=== PATIENT | female | born 1975 | race Caucasian/White ===

== ENCOUNTER 2016-08-11 10:31 | Emergency (ER) | payer OTHER ==
[~2016-08-11] VITALS: Ht 160 cm; Wt 128.0 kg
[~2016-08-11 10:31] MED LIST: OMEP40CA36 PO
[2016-08-11 10:39] VITALS: BP 135/91; PULSE 105; RESP 12; O2SAT 94
--- NOTE | 2016-08-11 10:53 | ED.REPORT ---
HPI-Abd Pain F Under 42 Date of Service August 11, 2016 ED Provider: Kosta Felix MD The patient is a 41 year old female who presents to the ED due to lower abdominal pain onset yesterday. She describes the pain as, "similar to cramping during childbirth." She had diarrhea that began yesterday and nausea this morning. She denies dysuria, vaginal bleeding and discharge, back pain and SOB. Nursing Notes Stated Complaint: SEVERE ABDOMINAL PAIN,DIARRHEA Chief Complaint: Female Abdominal Pain Nursing Notes Reviewed: Yes Allergies: Coded Allergies: codeine (Verified Allergy, Severe, RASH, 07/08/15) morphine (Verified Allergy, Severe, RASH, 07/08/15) Scheduled Omeprazole (Omeprazole) 40 Mg Capsule.dr 40 MG PO DAILY Scheduled PRN Hydrocodone-Acetaminophen 5-325 mg (Hydrocodone-Acetaminophen 5-325 mg) 1 Each Tablet 1 TABLET PO Q4H PRN PRN For Pain General Time Seen by MD: 10:39 Chief Complaint Abdominal pain Hx Obtained From: Patient Arrived By: Walk-in Sudden in Onset?: Yes Onset Occurred: Yesterday Symptom Duration: Since onset Progression since Onset: Gradually worsening Location: : Abdomen lower Quality: Cramping, Painful Severity: Current: Moderate Recent Healthcare: No recent doctor visit, No recent hospitalization Similar Sx Previous: No Past Medical History Past Medical History Pleurisy Acid reflux Past Surgical History Reports: Cholecystectomy, Hysterectomy Family History Pt reports family history of heart disease and that she had one grandpa at age 63 and another grandpa in his 50s. Reports: Coronary artery disease Smoking History Current Every Day Smoker Social History Alcohol Use: Denies alcohol use Other Social History: , Local resident Ambulatory Status Independent Review of Systems Respiratory: Denies: Shortness of breath GI: Reports: Abdominal pain, Diarrhea, Nausea, Denies: Vomiting Female: Denies: Dysuria, Vaginal bleeding - abnl, Vaginal discharge Musculoskeletal: Denies: Back pain Complete sys rev & neg: except as marked. Physical Exam Initial Vital Signs Vital Signs (First) Date Time Temp Pulse Resp B/P Pulse Ox O2 Delivery O2 Flow Rate FiO2 08/11/16 10:39 36.5 105 12 135/91 94 Room Air Initial VS: Reviewed Head / Eyes: Atraumatic, Normocephalic ENT: Mucous membranes moist, Conjunctiva normal Extremities: Vascular intact, Neuro intact, No swelling Skin: Warm, Dry General/Constitutional: Awake, Alert, Cooperative Respiratory / Chest: Atraumatic, Breath sounds NL, Breath sounds = bilat Cardiovascular: Heart rate NL, Regular rhythm, Heart sounds NL, No murmurs Abdomen: No guarding, No rebound Tenderness/Guarding/Rebound: Positive: Tender diffuse Back: Atraumatic, Inspection NL Interpretation & Diagnostics Lab Results Interpretation Result Diagram: 08/11/16 1115 08/11/16 1115 Test 08/11/16 11:15 White Blood Count 8.6th/mm3 (3.8-10.1) Red Blood Count 5.01mil/mm3 (3.90-5.20) Hemoglobin 15.5g/dL (12.0-15.6) Hematocrit 43.4% (35.0-46.0) Mean Corpuscular Volume 86.6fL (81-100) Mean Corpuscular Hemoglobin 30.9pg (27.0-35.0) Mean Corpuscular Hemoglobin Concent 35.7% (32.0-37.0) Red Cell Distribution Width 12.3% (12.3-15.4) Platelet Count 267bil/L (150-400) Neutrophils (%) (Auto) 65.1% (40-74) Lymphocytes (%) (Auto) 25.8% (14-46) Monocytes (%) (Auto) 6.2% (4-12) Eosinophils (%) (Auto) 2.5% (0-5) Basophils (%) (Auto) 0.2% (0-3) Sodium Level 135mEq/L (134-144) Potassium Level 4.4mEq/L (3.5-5.2) Chloride Level 99mEq/L (97-108) Carbon Dioxide Level 19mmol/L (18-29) Blood Urea Nitrogen 17mg/dL (6-20) Creatinine 0.63mg/dL (0.57-1.00) Estimat Glomerular Filtration Rate 151mL/min (>59) Glucose Level 128mg/dL (60-99) Calcium Level 9.0mg/dL (8.5-10.1) Magnesium Level 1.8mg/dL (1.6-2.6) Total Bilirubin 0.5mg/dL (0.0-1.2) Aspartate Amino Transf (AST/SGOT) 34U/L (0-50) Alanine Aminotransferase (ALT/SGPT) 38U/L (0-32) Alkaline Phosphatase 105U/L (25-150) Total Protein 7.3g/dL (6.4-8.4) Albumin 4.0g/dL (3.4-5.0) Lipase 21U/L (13-60) Hold Gray Top Tube Received (Received) Re-Eval/Medical Decision Med Decision/Clinical Course Med Decision/Clinical Course: 41-year-old female with crampy abdominal pain and nausea vomiting diarrhea 1 day. Her abdomen is soft and nontender on exam. Her labs are stable. She was given IV fluids and Zofran and felt much better. Discharged home in good condition with return precautions regarding in the right lower quadrant pain, no worsening abdominal pain, nausea vomiting, fevers chills, any other new or worsening symptoms. Re-Evaluation/Progress : Time of Eval: 12:45 Re-Evaluation/Progress Note: Pt rechecked. Labs are normal. She is still in pain. Counseled Regarding: Diagnosis, Lab results, Need for follow-up, When/why to return to ED Discharge & Departure Primary Impression: Gastroenteritis Additional Impressions: Diarrhea Diarrhea type: unspecified type Qualified Code: R19.7 - Diarrhea, unspecified Abdominal pain Abdominal location: unspecified location Qualified Code: R10.9 - Unspecified abdominal pain Disposition: Home Discharge Condition All VS Reviewed: Yes Condition: Stable Additional Instructions: Your labs were all normal. Your symptoms are likely due to a viral gastroenteritis. Drink plenty of fluids and keep well hydrated. Follow up with your primary care physician as needed. Return to the Emergency Department for any new or worsening symptoms including bloody or black tarry stools, vomiting, shortness of breath, abdominal pain, right lower abdominal pain, other new or worsening symptoms. Referrals: Abram Hassan MD (PCP) Breana Attestation Portion of this note were transcribed by Cristin Frost. I, Dr. Felix, personally performed the history, physical exam, and medical decision-making: I reviewed and confirmed the accuracy for the information in the transcribed note. Signed by: breana Duffy, 08/11/16 1300 copies to: Abram Hassan MD, Ben M MD August 11, 2016 10:53 Cristin Frost August 11, 2016 11:03
[2016-08-11] MEDS ORDERED: 0.9% Sodium Chloride 1,000 ML IV ONE (11:03)
[2016-08-11] MEDS ORDERED: Ondansetron 2 mg/mL 2 mL Inj IVPUSH PRN (11:05)
[2016-08-11] MEDS: HYDROmorphone 0.5 mg/0.5 mL iSecure Syringe IVPUSH PRN ×3 (11:14→11:48)
[2016-08-11 11:22] LABS: BASOPHILS % (AUTO) 0.2 % (0-3); EOSINOPHILS % (AUTO) 2.5 % (0-5); MONOCYTES % (AUTO) 6.2 % (4-12); Mean Corpuscular Hemoglobin 30.9 pg (27.0-35.0); Mean Corpuscular Volume 86.6 fL (81-100); NEUTROPHILS % (AUTO) 65.1 % (40-74); Platelet Count 267 bil/L (150-400)
[2016-08-11 11:31] VITALS: BP 119/94; PULSE 99; RESP 16; O2SAT 96
[2016-08-11 11:54] LABS: Magnesium 1.8 mg/dL (1.6-2.6)
[2016-08-11 12:04] VITALS: BP 125/76; PULSE 70; RESP 15; O2SAT 95
[2016-08-11] MEDS ORDERED: HYDR-4003 PO (12:52)
[2016-08-11] MEDS ORDERED: HYDROcodone-APAP 10-325 mg PO ONE (12:55)
[2016-08-11 13:09] VITALS: BP 118/89; PULSE 74; RESP 18; O2SAT 97
[2016-08-11 13:13] VITALS: BP 118/89; PULSE 74; RESP 18; O2SAT 97
== END 2016-08-11 13:26 | disposition home or self-care (01) ==
LOC: SED 10:31
DX: K52.9 Noninfective gastroenteritis and colitis, unspecified (principal); K21.9 Gastro-esophageal reflux disease without esophagitis; F17.200 Nicotine dependence, unspecified, uncomplicated; J45.909 Unspecified asthma, uncomplicated; I10 Essential (primary) hypertension; Z90.49 Acquired absence of other specified parts of digestive tract; Z88.5 Allergy status to narcotic agent
CPT/HCPCS: 36415; 80053; 81002; 83690; 83735; 85025; 96361; 96374; 99284; J1170; J7030